=== PATIENT | male | born 1985 | race Caucasian/White ===

== ENCOUNTER 2020-06-25 16:14 | Outpatient (REF) | payer BC, SELFPAY ==
[2020-06-28 11:30] LABS: COVID-19 RT-PCR UVMMC Result Negative (Negative)
== END 2020-06-25 16:34 ==
LOC: NCHCN 16:14
PROVIDERS: PCP Internal Medicine; Visit Provider Internal Medicine
DX: Z11.52 Encounter for screening for COVID-19 (principal)
CPT/HCPCS: U0003

== ENCOUNTER 2020-07-19 16:10 | Outpatient (REF) | payer BC, SELFPAY ==
[2020-07-21 16:22] LABS: COVID-19 RT-PCR UVMMC Result Negative (Negative)
== END 2020-07-19 16:30 ==
LOC: NCHCN 16:10
PROVIDERS: PCP Internal Medicine; Visit Provider Internal Medicine
DX: Z20.822 Contact with and (suspected) exposure to COVID-19 (principal)
CPT/HCPCS: U0003

== ENCOUNTER 2021-11-21 08:29 | Outpatient (REF) | payer BC, SELFPAY ==
[2021-11-21 15:11] LABS: Calculated LDL 127 mg/dL (<100); Cholesterol 201 mg/dL (<200); HDL Cholesterol 48 mg/dL (40-60); Triglyceride 130 mg/dL (<150)
[2021-11-24 14:08] LABS: Testosterone, Free 17.1 ng/dL (4.65-18.1); Testosterone, Total 504 ng/dL (240-950)
== END 2021-11-21 08:30 | disposition home or self-care (01) ==
LOC: NCHCN 08:29
PROVIDERS: PCP Internal Medicine; Visit Provider Internal Medicine
DX: Z00.00 Encounter for general adult medical examination without abnormal findings (principal); Z13.220 Encounter for screening for lipoid disorders; N52.9 Male erectile dysfunction, unspecified; Z13.6 Encounter for screening for cardiovascular disorders
CPT/HCPCS: 80061; 84402; 84403